=== PATIENT | female | born 1955 | race Caucasian/White ===

== ENCOUNTER 2018-10-25 19:14 | Observation (INO) | payer OTHER ==
[~2018-10-25] VITALS: Ht 157.5 cm; Wt 74.3 kg
[~2018-10-25 19:14] MED LIST: DULO60CA59 PO; Hydrocodone/Apap (10/325) PO; MELO7.5T38 PO; PANT40TA4 PO; RIVA10TA PO; TRAM50TA2 PO
[2018-10-25 21:20] VITALS: BP 159/91; PULSE 74; RESP 20; Ht 157.5 cm; Wt 74.3 kg
[2018-10-25] MEDS ORDERED: SULI200T3 PO (22:12)
[2018-10-25] MEDS ORDERED: TIZA4CAP PO (22:12)
[2018-10-25] MEDS ORDERED: GABA300C16 PO (22:12)
[2018-10-25] MEDS ORDERED: RANI150T35 PO (22:12)
[2018-10-25] MEDS ORDERED: ONDANSETRON 4 MG INJ IV PRN (22:30)
[2018-10-25] MEDS ORDERED: DOCUSATE SODIUM 100 MG CAP PO PRN (22:30)
[2018-10-25] MEDS ORDERED: BISACODYL (EC) 5 MG TAB PO PRN (22:30)
[2018-10-25] MEDS ORDERED: NACL 0.9% 3 ML SYG IV SCH (22:30)
[2018-10-25] MEDS ORDERED: ACETAMINOPHEN 325 MG TAB PO PRN (22:30)
[2018-10-25] MEDS ORDERED: hydrALAzine 20 MG INJ IV PRN (23:30)
[2018-10-25 23:37] VITALS: BP 159/92; PULSE 95; RESP 20
--- NOTE | 2018-10-26 02:33 | HP ---
Date/Time of Note Date/Time of Note DATE: 10/26/18 TIME: 02:33 Assessment/Plan VTE Prophylaxis SCD applied (from Nsg): Yes Pharmacological prophylaxis: NA/contraindicated Pharm contraindication: low risk/ambulating Lines/Catheters IV Catheter Type (from Nrsg): Saline Lock Assessment/Plan Hospital Course This is a 63-year-old female being admitted to the telemetry floor for observation for: #1 suspect TIA: Patient symptoms appear to be completely resolved at this point. Polypharmacy is also in the differential. At the current time will monitor patient's blood pressure closely, and start the patient on lisinopril if it ends up being out of the appropriate range. We will check a hemoglobin A 1C, lipid panel, TSH. Will obtain MRI MRA studies. Will consult neurology . Aspirin 81 mg for now. #2 fibromyalgia: We will resume home Cymbalta, gabapentin, [place], tizanidine #3 Partial thyroidectomy: We will check TSH, and proceed to free T3-T4 levels if abnormal. #4 DVT GI prophylaxis: SCDs, no GI prophylaxis indicated Further treatment strategy will be implemented as per the clinical course. HPI/ROS Admit Date/Time Admit Date/Time Oct 25, 2018 at 21:02 Hx of Present Illness This is a 63-year-old female who presented to [facility] with complaints of a headache and difficulty in finding her words. Patient reported that symptoms that started approximately 2 days ago soon after she woke up from sleep she had difficulty finding the words to say and when they came out there were jumbled and unclear and that approximately lasted for hours. After that it resolved. She states that it may have been having because she did not get enough sleep but then she may have thought it could been related to a stroke so she came to the emergency department. She did not at that time report mild nonradiating transient headache that lasted a few minutes but this has resolved. She denies any nausea vomiting or diarrhea. She denies any facial droop or bilateral upper or lower extremity weakness or numbness. She does report that the medication that she is on for her fibromyalgia and arthritis and chronic low back pain have been the same when she is been taken for a while and nothing is new. Allergies: Erythromycin Medications: [place] 103 25 p.o. twice daily Tizanidine 4 mg p.o. twice daily PRN Cymbalta 30 mg p.o. daily Cymbalta 60 mg p.o. nightly Sulindac 200 mg p.o. twice daily Gabapentin 300 mg p.o. at bedtime Pertinent laboratory finding from the transfer facility please see chart for full details: White blood cell 5.9/hemoglobin 13.0/hematocrit 39.9/platelet count 272 BMP sodium 144/potassium 3.5/chloride 104/carbon oxide 27/anion gap 13/BUN 18/creatinine 0.7 Glucose [address] of the brain without contrast showed: Findings are compatible with chronic underlying microvascular white matter ischemic changes otherwise unremarkable examination EKG showed normal sinus rhythm at approximately 88 bpm, no ST or T wave abnormalities concerning for ischemia ROS Const: As per HPI Eyes : No pain discharge or redness or change in visual acuity ENT: No pain, sore throat, congestion, congestion, dysphagia or discharge Respiratory: No shortness of breath, cough, sputum, wheezing, or pleuritic pain Cardiovascular: No chest pain, palpitation, PND, or edema GI : no change in appetite, abdominal pain, nausea, vomiting, diarrhea, constipation, or change in the color his stool Genitourinary: No dysuria, hematuria, flank pain , discharge or CVA tenderness Musculoskeletal: No joint pain, back pain, neck pain, restricted range of motion in neck or joints Skin: No rash, bruising or hives Neuro: As per HPI Endocrine: No polyuria, polydipsia, temperature intolerance Psych: No hallucination, depression, anxiety or suicidal ideation PMH/Family/Social Past Medical History Fibromyalgia, arthritis, chronic low back pain Medications Current Medications IV Flush (NS 3 ml) 3 ml PER PROTOCOL IV ; Start 10/25/18 at 22:30 Ondansetron HCl (Zofran Inj) 4 mg Q6H PRN IV NAUSEA/VOMITING; Start 10/25/18 at 22:30 Aspirin (Aspirin) 81 mg DAILY PO ; Start 10/26/18 at 09:00 Acetaminophen (Tylenol Tab) 650 mg Q6H PRN PO .PAIN 1-3 OR TEMP; Start 10/25/18 at 22:30 Docusate Sodium (Colace) 100 mg Q12H PRN PO .CONSTIPATION; Start 10/25/18 at 22:30 Bisacodyl (Dulcolax) 5 mg DAILY PRN PO .CONSTIPATION; Start 10/25/18 at 22:30 Hydralazine HCl (Apresoline) 10 mg Q4H PRN IV ELEVATED BLOOD PRESSURE; Start 10/25/18 at 23:30 Coded Allergies: erythromycin base (Verified Allergy, Unknown, 12/09/14) Past Surgical History Bilateral hip surgeries, partial thyroidectomy Family History Significant Family History: no pertinent family hx Social History Alcohol Use: none Smoking Status: Never smoker Drug Use: cocaine Exam/Review of Systems Vital Signs Vitals Vital Signs Date Temp Pulse Resp B/P (MAP) Pulse Ox O2 O2 Flow FiO2 Time Delivery Rate 10/25/18 97.5 95 20 159/92 96 Room Air 23:37 (114) Exam Exam General: Patient is a pleasant female currently lying in bed in no acute distress HEENT: Atraumatic, normocephalic. The pupils are equal, round and reactive. Extraocular motor are intact Neck: Supple with full range of motion. No rigidity or meningismus Chest: Nontender Lungs: Clear to auscultation bilaterally no crackles rales or wheezing Heart: Normal S1-S2, Regular rhythm and rate. No murmur, S3, or S4 Abdomen: Soft , nontender, nondistended , bowel sounds are present. No guarding no rebound tenderness , No masses or organomegaly. No costovertebral temporal angle mass Extremities: Normal to inspection, no edema no cyanosis Neurologic: Normal mental status, speech normal, cranial nerves II through XII are intact, motor and sensory are intact, strength 5 out of 5 in bilateral upper and lower extremities. LG VILLALTA Oct 26, 2018 02:33
[2018-10-26 04:00] VITALS: BP 137/91; PULSE 71; RESP 20
[2018-10-26 07:26] VITALS: BP 157/97; PULSE 70; RESP 20
[2018-10-26] MEDS ORDERED: TIZANIDINE 4 MG TAB PO PRN (09:00)
[2018-10-26] MEDS: LISINOPRIL 10 MG TAB PO SCH (09:32)
[2018-10-26] MEDS: PANTOPRAZOLE (EC) 40 MG TAB PO SCH (09:32)
[2018-10-26] MEDS: DULOXETINE 30 MG CAP DR PO SCH (09:33)
[2018-10-26] MEDS: ASPIRIN 81 MG TAB PO SCH (09:33)
[2018-10-26 11:38] VITALS: BP 154/100; PULSE 73; RESP 18
--- NOTE | 2018-10-26 11:45 | CONSI ---
Assessment/Plan Assessment/Plan Assessment/Plan (Recall) 63 F s/ significant cerebrovascular risk factors, who presents for evaluation of transient aphasia (x 1 hr) in the context of headache.. The clinical picture could be consistent w/ complicated migraine.. TIA/minor stroke is, though, not yet excluded.. Head CT is unrevealing. CUS is negative LDL 114 a1c nl P: Await MRI brain to evaluate for acute ischemia Agree w/ asa daily, pending the above Add Lipitor hs Add UDS, ESR, RPR PT/OT/ST as necessary Other management per primary Will follow clinically Consultation Date/Type/Reason Admit Date/Time Oct 25, 2018 at 21:02 Type of Consult Neurology Reason for Consultation transient aphasia Requesting Provider: LG VILLALTA Date/Time of Note DATE: 10/26/18 TIME: 11:38 Hx of Present Illness This is a 63-year-old female who presented to an outside hospital with complaints of a headache and difficulty in finding her words. Patient reported that symptoms that started approximately 2 days ago soon after she woke up from sleep she had difficulty finding the words to say and when they came out there were jumbled and unclear and that approximately lasted for hours. After that it resolved. She states that it may have been having because she did not get enough sleep but then she may have thought it could been related to a stroke so she came to the emergency department. She did not at that time report mild nonradiating transient headache that lasted a few minutes but this has resolved. She denies any nausea vomiting or diarrhea. She denies any facial droop or bilateral upper or lower extremity weakness or numbness. She does report that the medication that she is on for her fibromyalgia and arthritis and chronic low back pain have been the same when she is been taken for a while and nothing is new. Allergies: Erythromycin Medications: [place] 103 25 p.o. twice daily Tizanidine 4 mg p.o. twice daily PRN Cymbalta 30 mg p.o. daily Cymbalta 60 mg p.o. nightly Sulindac 200 mg p.o. twice daily Gabapentin 300 mg p.o. at bedtime Pertinent laboratory finding from the transfer facility please see chart for full details: White blood cell 5.9/hemoglobin 13.0/hematocrit 39.9/platelet count 272 BMP sodium 144/potassium 3.5/chloride 104/carbon oxide 27/anion gap 13/BUN 18/cr eatinine 0.7 Glucose [address] of the brain without contrast showed: Findings are compatible with chronic underlying microvascular white matter ischemic changes otherwise unremarkable examination EKG showed normal sinus rhythm at approximately 88 bpm, no ST or T wave abnormalities concerning for ischemia 12 PT ROS ow neg Objective Exam Vitals Vital Signs Date Temp Pulse Resp B/P (MAP) Pulse Ox O2 O2 Flow FiO2 Time Delivery Rate 10/26/18 98.8 70 20 157/97 96 Room Air 07:26 (117) Exam PE: Gen Appearance: No Apparent Distress HEENT: Normocephalic Cardiovascular: Regular rate Lungs: Clear bilaterally Abdomen: Soft Extremities: Dry NE: The patient was alert and oriented. Language was normal. Fund of knowledge was normal. Pupils were equal and reactive to light. There was no afferent pupillary defect. Visual massey were normal. Funduscopic examination was limited. Extra-ocular movements were full. Ptosis was absent. There was no nystagmus. Facial sensation was normal. Face was symmetric with normal strength. Hearing was intact. Palate movements were normal. Neck strength was normal. There was normal tongue bulk and speed of movement. Tone was normal. Muscle bulk was normal. I did not see fasciculations. Arms and legs were strong. Vibration sensation was normal. Temperature and pinprick sensation was normal. Rapid alternating movements were normal. There was no dysmetria. There was no intention tremor. Gait was deferred due to bedrest. Arm and leg reflexes were 2+ and symmetric. Woodson's sign was absent. Plantar responses were flexor. Results Result Diagram: 10/26/18 0525 10/26/18 0525 Results 24hrs Laboratory Tests Test 10/26/18 05:25 White Blood Count 6.3 Red Blood Count 4.59 # Hemoglobin 13.0 # Hematocrit 39.6 # Mean Corpuscular Volume 86.3 Mean Corpuscular Hemoglobin 28.3 L Mean Corpuscular Hemoglobin Concent 32.8 Red Cell Distribution Width 14.0 Platelet Count 266 Mean Platelet Volume 9.5 # Immature Granulocytes % 0.300 Neutrophils % 64.7 Lymphocytes % 24.7 Monocytes % 7.3 Eosinophils % 2.2 Basophils % 0.8 Nucleated Red Blood Cells % 0.0 Immature Granulocytes # 0.020 Neutrophils # 4.1 Lymphocytes # 1.6 Monocytes # 0.5 Eosinophils # 0.1 Basophils # 0.1 Nucleated Red Blood Cells # 0.0 Sodium Level 144 Potassium Level 4.0 Chloride Level 110 Carbon Dioxide Level 27 Anion Gap 7 Blood Urea Nitrogen 20 Creatinine 0.67 Est Glomerular Filtrat Rate mL/min > 60 Glucose Level 103 Hemoglobin A1c 4.9 Calcium Level 9.1 Magnesium Level 2.0 Total Bilirubin 0.5 Direct Bilirubin 0.00 Indirect Bilirubin 0.5 Aspartate Amino Transf (AST/SGOT) 23 Alanine Aminotransferase (ALT/SGPT) 23 Alkaline Phosphatase 64 Total Protein 7.1 Albumin 4.0 Globulin 3.10 Albumin/Globulin Ratio 1.29 Triglycerides Level 150 H Cholesterol Level 228 H LDL Cholesterol, Calculated 114 HDL Cholesterol 84 Cholesterol/HDL Ratio 2.7 Thyroid Stimulating Hormone (TSH) 0.110 L Free Thyroxine 0.96 Free Triiodothyronine (T3) pg/mL 3.55 Past Medical History reviewed Home Meds Active Scripts [Hydrocodone/Apap ()] 1 TAB TAB No Conflict Check, 1 TAB PO Q4H PRN for PAIN, #30 Prov:JOSE SERRATO 01/15/16 Rivaroxaban* (Xarelto*) 10 Mg Tablet, 10 MG PO DAILY for 30 Days, TAB Prov:JOSE SERRATO 01/15/16 Tramadol HCl (Tramadol HCl) 50 Mg Tab, 50 MG PO TID, #30 TAB Prov:JOSE SERRATO 01/15/16 Reported Medications Gabapentin* (Gabapentin*) 300 Mg Capsule, 300 MG PO QHS, #60 CAP 10/25/18 Sulindac* (Clinoril*) 200 Mg Tablet, 200 MG PO BID, TAB 10/25/18 Ranitidine Hcl* (Zantac*) 150 Mg Tablet, 150 MG PO BID, #60 TAB 10/25/18 Tizanidine Hcl* (Zanaflex*) 4 Mg Capsule, 4 MG PO BID PRN for SPASTICITY, CAP 10/25/18 Meloxicam* (Meloxicam*) 7.5 Mg Tablet, 15 MG PO DAILY, #30 TAB 01/12/16 Pantoprazole* (Pantoprazole*) 40 Mg Tablet.dr, 40 MG PO DAILY, TAB 01/12/16 Duloxetine Hcl* (Duloxetine Hcl*) 60 Mg Capsule.dr, 60 MG PO DAILY, #30 CAP 30 MG IN AM; 60 MG AT BEDTIME 01/12/16 Medications Current Medications IV Flush (NS 3 ml) 3 ml PER PROTOCOL IV ; Start 10/25/18 at 22:30 Ondansetron HCl (Zofran Inj) 4 mg Q6H PRN IV NAUSEA/VOMITING; Start 10/25/18 at 22:30 Aspirin (Aspirin) 81 mg DAILY PO Last administered on 10/26/18at 09:33; Admin Dose 81 MG; Start 10/26/18 at 09:00 Acetaminophen (Tylenol Tab) 650 mg Q6H PRN PO .PAIN 1-3 OR TEMP Last administered on 10/26/18at 10:01; Admin Dose 650 MG; Start 10/25/18 at 22:30 Docusate Sodium (Colace) 100 mg Q12H PRN PO .CONSTIPATION; Start 10/25/18 at 22:30 Bisacodyl (Dulcolax) 5 mg DAILY PRN PO .CONSTIPATION; Start 10/25/18 at 22:30 Hydralazine HCl (Apresoline) 10 mg Q4H PRN IV ELEVATED BLOOD PRESSURE; Start 10/25/18 at 23:30 Lisinopril (Zestril) 10 mg DAILY PO Last administered on 10/26/18at 09:32; Admin Dose 10 MG; Start 10/26/18 at 09:00 Duloxetine HCl (Cymbalta) 60 mg DAILY PO Last administered on 10/26/18at 09:33; Admin Dose 60 MG; Start 10/26/18 at 09:00 Pantoprazole (Protonix Tab) 40 mg DAILY PO Last administered on 10/26/18at 09:32; Admin Dose 40 MG; Start 10/26/18 at 09:00 Sulindac (Clinoril) 200 mg BID PO ; Start 10/26/18 at 09:00 Tizanidine HCl (Zanaflex) 4 mg BID PRN PO SPASTICITY; Start 10/26/18 at 09:00 Allergies: Coded Allergies: erythromycin base (Verified Allergy, Unknown, 12/09/14) Social History Alcohol Use: none Smoking Status: Never smoker Drug Use: cocaine NANDINI MILLS Oct 26, 2018 11:45
--- NOTE | 2018-10-26 11:47 | RADRPT ---
Echocardiogram Report Patient Name: Melissa MOREnt ID: [id number] : 1955 (63y 7m)Study Date: 10/26/2018 8:18:19 AM Gender: FAccession #: [id number] Tech: Juan Manuel Kennedy [facility] Location: [address] Ref.Physician: LG VILLALTA Height(Cm): BSA: Weight(Kg): Quality: AdequateOrder Physician: LG VILLALTA Account #: Procedures: Echocardiographic Report: Transthoracic echocardiogram with complete 2D, M-Mode, and doppler examination. Indications: Transient Ischemic Attack w/ Bubble Study. Measurements: 2D/M Mode Doppler Measurement Value Normal Range Measurement Value Normal Range LVIDd 2D 3.4 [ 3.8 - 5.2 ] cm AV Peak Jason 1.3 [ 100.0 - 170.0 ] cm/sec LVIDs 2D 2.1 [ 2.2 - 3.5 ] cm AV Peak PG 7.0 [ 2.0 - 9.0 ] mmHg LVPWd 2D 1.1 [ 0.6 - 0.9 ] cm LVOT Peak Jason 1.3 [ 70.0 - 110.0 ] cm/sec IVSd 2D 1.2 [ 0.6 - 0.9 ] cm LVOT Peak PG 6.0 [ 2.0 - 6.0 ] mmHg AoR Diam 2D 2.5 [ 2.3 - 3.1 ] cm MV E Peak Jason 1.0 [ 60.0 - 130.0 ] cm/sec EDV 2D 47.8 [ 46.0 - 106.0 ] ml MV A Peak Jason 1.1 [ 100.0 - 120.0 ] cm/sec ESV 2D 14.9 [ 14.0 - 42.0 ] ml MV E/A 0.9 [ 0.8 - 1.5 ] ratio EF 2D 68.8 [ 54.0 - 74.0 ] percent MV Decel Time 215 [ 104 - 258 ] msec LA Dimen 2D 3.0 [ 2.7 - 3.8 ] cm Lat E` Jason 0.1 [ 10.0 - 15.0 ] cm/sec Lateral E/E` 11.7 [ 1.0 - 2.0 ] ratio Med E` Jason 0.1 cm/sec MV E/A 0.9 [ 0.8 - 1.5 ] ratio TR Peak Jason 2.6 [ 100.0 - 280.0 ] cm/sec TR Peak PG 28.0 mmHg RVSP 31.0 [ 10.0 - 36.0 ] mmHg Findings: Left Ventricle: Normal left ventricular systolic function. Normal left ventricular cavity size. Left ventricular wall thickness upper limits of normal. Ejection fraction is visually estimated at 65 %. Tissue Doppler/Mitral Doppler indices are consistent with impaired relaxation (Stage I diastolic dysfunction). Right Ventricle: Normal right ventricular size. Normal right ventricular systolic function. Left Atrium: There is mild enlargement of left atrium. Right Atrium: The right atrium is normal in size. Atrial Septum: Bubble study was performed with and with out valsalva indicating no evidence of intra atrial shunt. Mitral Valve: Normal appearance of the mitral valve. Normal appearance and function of the mitral valve with trace physiologic regurgitation. Aortic Valve: Normal appearance of the aortic valve. No significant aortic stenosis or insufficiency. Tricuspid Valve: Normal appearance of the tricuspid valve. The estimated Peak RVSP is 31 mmHg. There is mild tricuspid regurgitation. Pericardium: Normal pericardium with no significant pericardial effusion. Aorta: Normal aortic root. IVC: Normal size and normal respiratory collapse consistent with normal right atrial pressure. Conclusions: Normal left ventricular systolic function. Normal left ventricular cavity size. Left ventricular wall thickness upper limits of normal. Ejection fraction is visually estimated at 65 %. Tissue Doppler/Mitral Doppler indices are consistent with impaired relaxation (Stage I diastolic dysfunction). No significant valvular stenosis or regurgitation seen. Bubble study was performed with and with out valsalva indicating no evidence of intra atrial shunt. The estimated Peak RVSP is 31 mmHg. Normal size and normal respiratory collapse consistent with normal right atrial pressure. Electronically Signed By: Jose Bowman 2018-10-26 11:47:06 PDT
[2018-10-26] MEDS: SULINDAC 200 MG TAB PO SCH ×2 (14:10→23:05)
--- NOTE | 2018-10-26 15:40 | PN ---
Date/Time of Note Date/Time of Note DATE: 10/26/18 TIME: 15:38 Assessment/Plan VTE Prophylaxis Risk score (from [facility] [place] [facility])>0 risk: 2 SCD applied (from [facility]): No SCD contraindicated: other Pharmacological prophylaxis: NA/contraindicated Pharm contraindication: low risk/ambulating Lines/Catheters IV Catheter Type (from [facility]): Saline Lock Assessment/Plan Hospital Course Assessment and plan 1. Suspect TIA. -Patient did report aphasia 2 days ago. -Suspect possibly polypharmacy as differential. - Neurologist is following. - No obvious motor deficit or aphasia seen during interview. - MRI/MRI of the brain is pending. - Continue antiplatelet therapy for now. 2. History of fibromyalgia. - Continue on analgesics. 3. History of partial thyroidectomy. - Follow-up on thyroid panel. Disposition plan. Appears to be stable at present. Follow-up on imaging. Anticipate discharge within the next 24 hours if medically stable. Discussed POC with Dr. Jay Result Diagram: 10/26/18 0525 10/26/18 0525 Results 24hrs Laboratory Tests Test 10/26/18 05:23 10/26/18 05:25 Erythrocyte Sedimentation Rate 10.0 White Blood Count 6.3 Red Blood Count 4.59 # Hemoglobin 13.0 # Hematocrit 39.6 # Mean Corpuscular Volume 86.3 Mean Corpuscular Hemoglobin 28.3 L Mean Corpuscular Hemoglobin Concent 32.8 Red Cell Distribution Width 14.0 Platelet Count 266 Mean Platelet Volume 9.5 # Immature Granulocytes % 0.300 Neutrophils % 64.7 Lymphocytes % 24.7 Monocytes % 7.3 Eosinophils % 2.2 Basophils % 0.8 Nucleated Red Blood Cells % 0.0 Immature Granulocytes # 0.020 Neutrophils # 4.1 Lymphocytes # 1.6 Monocytes # 0.5 Eosinophils # 0.1 Basophils # 0.1 Nucleated Red Blood Cells # 0.0 Sodium Level 144 Potassium Level 4.0 Chloride Level 110 Carbon Dioxide Level 27 Anion Gap 7 Blood Urea Nitrogen 20 Creatinine 0.67 Est Glomerular Filtrat Rate mL/min > 60 Glucose Level 103 Hemoglobin A1c 4.9 Calcium Level 9.1 Magnesium Level 2.0 Total Bilirubin 0.5 Direct Bilirubin 0.00 Indirect Bilirubin 0.5 Aspartate Amino Transf (AST/SGOT) 23 Alanine Aminotransferase (ALT/SGPT) 23 Alkaline Phosphatase 64 Total Protein 7.1 Albumin 4.0 Globulin 3.10 Albumin/Globulin Ratio 1.29 Triglycerides Level 150 H Cholesterol Level 228 H LDL Cholesterol, Calculated 114 HDL Cholesterol 84 Cholesterol/HDL Ratio 2.7 Thyroid Stimulating Hormone (TSH) 0.110 L Free Thyroxine 0.96 Free Triiodothyronine (T3) pg/mL 3.55 Subjective 24 Hr Interval Summary Free Text/Dictation Alert and oriented. No signs of distress. No obvious motor deficit or aphasia seen. Exam/Review of Systems Exam Vitals Vital Signs Date Temp Pulse Resp B/P (MAP) Pulse Ox O2 O2 Flow FiO2 Time Delivery Rate 10/26/18 98.1 73 18 154/100 97 Room Air 11:38 (118) Constitutional: alert, oriented Psych: nl mood/affect Head: normocephalic Neck: supple, non-tender Respiratory: clear to auscultation Cardiovascular: regular rate and rhythm Gastrointestinal: soft, non-tender Musculoskeletal: nl extremities to inspection Neurological: STRINGER UP SOLDERING MACHINE II-XII intact, nl mental status, nl speech Skin: nl turgor Results Results 24hrs Laboratory Tests Test 10/26/18 05:23 10/26/18 05:25 Erythrocyte Sedimentation Rate 10.0 White Blood Count 6.3 Red Blood Count 4.59 # Hemoglobin 13.0 # Hematocrit 39.6 # Mean Corpuscular Volume 86.3 Mean Corpuscular Hemoglobin 28.3 L Mean Corpuscular Hemoglobin Concent 32.8 Red Cell Distribution Width 14.0 Platelet Count 266 Mean Platelet Volume 9.5 # Immature Granulocytes % 0.300 Neutrophils % 64.7 Lymphocytes % 24.7 Monocytes % 7.3 Eosinophils % 2.2 Basophils % 0.8 Nucleated Red Blood Cells % 0.0 Immature Granulocytes # 0.020 Neutrophils # 4.1 Lymphocytes # 1.6 Monocytes # 0.5 Eosinophils # 0.1 Basophils # 0.1 Nucleated Red Blood Cells # 0.0 Sodium Level 144 Potassium Level 4.0 Chloride Level 110 Carbon Dioxide Level 27 Anion Gap 7 Blood Urea Nitrogen 20 Creatinine 0.67 Est Glomerular Filtrat Rate mL/min > 60 Glucose Level 103 Hemoglobin A1c 4.9 Calcium Level 9.1 Magnesium Level 2.0 Total Bilirubin 0.5 Direct Bilirubin 0.00 Indirect Bilirubin 0.5 Aspartate Amino Transf (AST/SGOT) 23 Alanine Aminotransferase (ALT/SGPT) 23 Alkaline Phosphatase 64 Total Protein 7.1 Albumin 4.0 Globulin 3.10 Albumin/Globulin Ratio 1.29 Triglycerides Level 150 H Cholesterol Level 228 H LDL Cholesterol, Calculated 114 HDL Cholesterol 84 Cholesterol/HDL Ratio 2.7 Thyroid Stimulating Hormone (TSH) 0.110 L Free Thyroxine 0.96 Free Triiodothyronine (T3) pg/mL 3.55 Medications Medication Current Medications IV Flush (NS 3 ml) 3 ml PER PROTOCOL IV ; Start 10/25/18 at 22:30 Ondansetron HCl (Zofran Inj) 4 mg Q6H PRN IV NAUSEA/VOMITING; Start 10/25/18 at 22:30 Aspirin (Aspirin) 81 mg DAILY PO Last administered on 10/26/18at 09:33; Admin Dose 81 MG; Start 10/26/18 at 09:00 Acetaminophen (Tylenol Tab) 650 mg Q6H PRN PO .PAIN 1-3 OR TEMP Last administered on 10/26/18at 10:01; Admin Dose 650 MG; Start 10/25/18 at 22:30 Docusate Sodium (Colace) 100 mg Q12H PRN PO .CONSTIPATION; Start 10/25/18 at 22:30 Bisacodyl (Dulcolax) 5 mg DAILY PRN PO .CONSTIPATION; Start 10/25/18 at 22:30 Hydralazine HCl (Apresoline) 10 mg Q4H PRN IV ELEVATED BLOOD PRESSURE; Start 10/25/18 at 23:30 Lisinopril (Zestril) 10 mg DAILY PO Last administered on 10/26/18at 09:32; Admin Dose 10 MG; Start 10/26/18 at 09:00 Duloxetine HCl (Cymbalta) 60 mg DAILY PO Last administered on 10/26/18at 09:33; Admin Dose 60 MG; Start 10/26/18 at 09:00 Pantoprazole (Protonix Tab) 40 mg DAILY PO Last administered on 10/26/18at 09:32; Admin Dose 40 MG; Start 10/26/18 at 09:00 Sulindac (Clinoril) 200 mg BID PO Last administered on 10/26/18at 14:10; Admin Dose 200 MG; Start 10/26/18 at 09:00 Tizanidine HCl (Zanaflex) 4 mg BID PRN PO SPASTICITY; Start 10/26/18 at 09:00 Atorvastatin Calcium (Lipitor) 40 mg HS PO ; Start 10/26/18 at 21:00 MERCEDES HOROWITZ NP Oct 26, 2018 15:40
[2018-10-26 15:57] VITALS: BP 126/89; PULSE 72; RESP 20
[2018-10-26 20:00] VITALS: BP 131/82; PULSE 89; RESP 20
[2018-10-26] MEDS ORDERED: ATORVASTATIN 40 MG TAB PO SCH (21:00)
[2018-10-27] VITALS: BP 128/86; PULSE 76; RESP 20
[2018-10-27 04:00] VITALS: BP 96/54; PULSE 78; RESP 20
[2018-10-27 07:11] VITALS: BP 106/68; PULSE 66; RESP 16
[2018-10-27] MEDS: LISINOPRIL 10 MG TAB PO SCH (09:00)
[2018-10-27] MEDS: SULINDAC 200 MG TAB PO SCH (09:15)
[2018-10-27] MEDS: PANTOPRAZOLE (EC) 40 MG TAB PO SCH (09:15)
[2018-10-27] MEDS: DULOXETINE 30 MG CAP DR PO SCH (09:15)
[2018-10-27] MEDS: ASPIRIN 81 MG TAB PO SCH (09:16)
[2018-10-27 11:02] VITALS: BP 132/62; PULSE 79; RESP 16
[2018-10-27 11:05] VITALS: BP 124/69; PULSE 79; RESP 16
[2018-10-27] MEDS ORDERED: ASPI-831 PO (11:24)
[2018-10-27] MEDS ORDERED: ATOR40TA68 PO (11:24)
[2018-10-27] MEDS ORDERED: LISI10TA2 PO (11:24)
--- NOTE | 2018-10-27 11:25 | PDOCDIS ---
Discharge Instructions DIAGNOSIS Discharge Diagnosis 1. Suspect TIA. 2. History of fibromyalgia. 3. History of partial thyroidectomy. CONDITION [id number] Patient Condition: [id number] Stable HOME CARE INSTRUCTIONS: [id number] Diet Instructions: [id number] Low Fat /Cholesterol FOLLOW UP/APPOINTMENTS Follow-up Plan 1. Follow up with your primary care doctor in 1-2 weeks MERCEDES HOROWITZ NP Oct 27, 2018 11:25
--- NOTE | 2018-10-27 13:11 | CONS ---
Assessment/Plan Assessment/Plan Assessment/Plan (Recall) 63 F s/ significant cerebrovascular risk factors, who presents for evaluation of transient aphasia (x 1 hr) in the context of headache.. The clinical picture could be consistent w/ complicated migraine.. MRI brain was reassuringly negative for acute intracranial pathology. MRA head is unremarkable CUS is negative LDL 114 a1c nl P: Pain control and other medical management per primary Neurologically cleared for discharge Consultation Date/Type/Reason Admit Date/Time Oct 25, 2018 at 21:02 Type of Consult Neurology Reason for Consultation transient aphasia Requesting Provider: LG VILLALTA Date/Time of Note DATE: 10/27/18 TIME: 13:10 24 HR Interval Summary Free Text/Dictation s/p MRI brain Exam/Review of Systems Exam Vitals Vital Signs Date Temp Pulse Resp B/P (MAP) Pulse Ox O2 O2 Flow FiO2 Time Delivery Rate 10/27/18 97.9 79 16 124/69 96 11:05 (87) 10/27/18 Room Air 04:00 Intake and Output 10/26/18 10/26/18 10/27/18 1515:00 23:00 07:00 IntakeIntake Total 360 ml 850 ml OutputOutput Total 250 ml BalanceBalance 360 ml 600 ml Results Result Diagram: 10/26/18 0525 10/26/18 0525 Results 24hrs Laboratory Tests Test 10/26/18 19:20 Urine Opiates Screen POSITIVE Urine Barbiturates NEGATIVE Urine Amphetamines Screen NEGATIVE Urine Benzodiazepines Screen NEGATIVE Urine Cocaine Screen NEGATIVE Urine Cannabinoids NEGATIVE Medications Medication Current Medications IV Flush (NS 3 ml) 3 ml PER PROTOCOL IV ; Start 10/25/18 at 22:30 Ondansetron HCl (Zofran Inj) 4 mg Q6H PRN IV NAUSEA/VOMITING; Start 10/25/18 at 22:30 Aspirin (Aspirin) 81 mg DAILY PO Last administered on 10/27/18at 09:16; Admin Dose 81 MG; Start 10/26/18 at 09:00 Acetaminophen (Tylenol Tab) 650 mg Q6H PRN PO .PAIN 1-3 OR TEMP Last administered on 10/26/18at 10:01; Admin Dose 650 MG; Start 10/25/18 at 22:30 Docusate Sodium (Colace) 100 mg Q12H PRN PO .CONSTIPATION; Start 10/25/18 at 22:30 Bisacodyl (Dulcolax) 5 mg DAILY PRN PO .CONSTIPATION; Start 10/25/18 at 22:30 Hydralazine HCl (Apresoline) 10 mg Q4H PRN IV ELEVATED BLOOD PRESSURE; Start 10/25/18 at 23:30 Lisinopril (Zestril) 10 mg DAILY PO Last administered on 10/26/18at 09:32; Admin Dose 10 MG; Start 10/26/18 at 09:00 Duloxetine HCl (Cymbalta) 60 mg DAILY PO Last administered on 10/27/18at 09:15; Admin Dose 60 MG; Start 10/26/18 at 09:00 Pantoprazole (Protonix Tab) 40 mg DAILY PO Last administered on 10/27/18at 09:15; Admin Dose 40 MG; Start 10/26/18 at 09:00 Sulindac (Clinoril) 200 mg BID PO Last administered on 10/27/18at 09:15; Admin Dose 200 MG; Start 10/26/18 at 09:00 Tizanidine HCl (Zanaflex) 4 mg BID PRN PO SPASTICITY; Start 10/26/18 at 09:00 Atorvastatin Calcium (Lipitor) 40 mg HS PO Last administered on 10/26/18at 20:51; Admin Dose 40 MG; Start 10/26/18 at 21:00 NANDINI MILLS Oct 27, 2018 13:11
--- NOTE | 2018-10-27 14:13 | DS ---
Date/Time of Note Date/Time of Note DATE: 10/27/18 TIME: 14:10 Discharge Summary Admission/Discharge Info Admit Date/Time Oct 25, 2018 at 21:02 Discharge Date/Time Oct 27, 2018 at 13:45 Discharge Diagnosis 1. Suspect TIA. 2. History of fibromyalgia. 3. History of partial thyroidectomy. Patient Condition: Stable Hospital Course This is a 63-year-old female here in the hospital due to reports of headache and reported slurred speech. Patient reported that symptoms started 2 days prior to admission when she woke up and found it difficult to speak. She reports that symptoms lasted for roughly an hour. It did resolve. She did state to me during interview that she was advised to go to the hospital for further evaluation. She was seen by neurologist. carotid Doppler showed no significant carotid stenosis. Neck MRA showed no significant stenosis well. She had a brain MRI with MRA done as well with major intracranial arteries patent with no significant stenosis. Brain MRI also with no evidence of acute infarct. Patient was with suspect TIA. She was otherwise optimized medically. She was placed on antiplatelet therapy and statin medication. She was resumed on analgesics for history of fibromyalgia. There was possible suspicion for polypharmacy and patient was counseled on her medication regimen and also on signs and symptoms of stroke. During her course of stay she did improve. Plan of care was discussed with the patient and patient verbalized understanding. On the day of discharge patient was in stable condition Discussed POC with Dr. [facility] Active Scripts Aspirin (Aspirin) 81 Mg Chew, 81 MG PO DAILY, #30 TAB Prov:MERCEDES HOROWITZ KILN PUSHER 10/27/18 Lisinopril* (Lisinopril*) 10 Mg Tablet, 10 MG PO DAILY, #30 TAB Prov:MERCEDES HOROWITZ KILN PUSHER 10/27/18 Atorvastatin* (Atorvastatin*) 40 Mg Tablet, 40 MG PO HS, #30 TAB Prov:MERCEDES HOROWITZ KILN PUSHER 10/27/18 Reported Medications Gabapentin* (Gabapentin*) 300 Mg Capsule, 300 MG PO QHS, #60 CAP 10/25/18 Sulindac* (Clinoril*) 200 Mg Tablet, 200 MG PO BID, TAB 10/25/18 Ranitidine Hcl* (Zantac*) 150 Mg Tablet, 150 MG PO BID, #60 TAB 10/25/18 Tizanidine Hcl* (Zanaflex*) 4 Mg Capsule, 4 MG PO BID PRN for SPASTICITY, CAP 10/25/18 Duloxetine Hcl* (Duloxetine Hcl*) 60 Mg Capsule.dr, 60 MG PO DAILY, #30 CAP 30 MG IN AM; 60 MG AT BEDTIME 01/12/16 Discontinued Reported Medications Meloxicam* (Meloxicam*) 7.5 Mg Tablet, 15 MG PO DAILY, #30 TAB 01/12/16 Pantoprazole* (Pantoprazole*) 40 Mg Tablet.dr, 40 MG PO DAILY, TAB 01/12/16 Discontinued Scripts [Hydrocodone/Apap ()] 1 TAB TAB No Conflict Check, 1 TAB PO Q4H PRN for PAIN, #30 Prov:JOSE SERRATO 01/15/16 Tramadol HCl (Tramadol HCl) 50 Mg Tab, 50 MG PO TID, #30 TAB Prov:JOSE SERRATO 01/15/16 Follow-up Plan 1. Follow up with your primary care doctor in 1-2 weeks Primary Care Provider [facility] Time spent on discharge: > 30 minutes Pending Labs Laboratory Tests Test 10/26/18 19:20 Urine Opiates Screen POSITIVE (NEGATIVE) Urine Barbiturates NEGATIVE (NEGATIVE) Urine Amphetamines Screen NEGATIVE (NEGATIVE) Urine Benzodiazepines Screen NEGATIVE (NEGATIVE) Urine Cocaine Screen NEGATIVE (NEGATIVE) Urine Cannabinoids NEGATIVE (NEGATIVE) MERCEDES HOROWITZ NP Oct 27, 2018 14:13
== END 2018-10-27 13:45 | disposition home or self-care (01) ==
LOC: 6WM 21:02 → INTOOBSV 21:02
PROVIDERS: ADMIT Internal Medicine; ATTEND Internal Medicine
DX: R47.81 Slurred speech (principal); R51 Headache; M79.7 Fibromyalgia
CPT/HCPCS: 70544; 70548; 70551; 71045; 80053; 80061; 80307; 83036; 83735; 84439; 84443; 84481; 85025; 85651; 86592; 92610; 93306; 93880; 97161; Z7500; Z7610; 99217; G0378